=== PATIENT | female | born 1935 | race Caucasian/White ===

== ENCOUNTER 2020-11-05 02:16 | Inpatient (IN) | payer MEDICARE, OTHER ==
[~2020-11-05 02:16] MED LIST: AMLODIPINE BESY10 MG PO; ATORVASTATIN CA40 MG PO; CALCIUM ACETAT667 M1 PO; CLONAZEPAM0.5 M1 PO; ESTRACE42.5 GM UR; ETHYL CHLORIDE TOP; ISOSORBIDE DINI20 MG PO; LASIX80 MG PO; METOLAZONE10 MG PO; VITAMIN D31000 UNIT PO
[2020-11-05 03:39] LABS: BASOPHIL 0.2 % (0-2); EOSINOPHIL 0.4 % (0-7); HCT 26.4 % (37.0-47.0); HGB 8.6 g/dl (12.5-16.0); LYMPHOCYTE 11.1 % (15-48); MCH 31.6 pg (25.0-31.0); MCHC 32.6 g/dL (32.0-36.0); MCV 97.1 fL (78.0-100.0); MONOCYTE 5.3 % (0-12); MPV 11.1 fL (6.0-9.5); NEUTROPHIL 82.5 % (41-80); NRBC 0.3; PLT 212 K/uL (150-400); RBC 2.72 M/uL (4.20-5.40); RDW 16.3 % (11.5-14.0); RETICULOCYTE COUNT 2.9 % (1.0-2.0); WBC 10.2 K/uL (4.0-10.5)
[2020-11-05 04:07] LABS: ALBUMIN 2.9 g/dL (3.4-5.0); BILIRUBIN - TOTAL 0.8 mg/dL (0.2-1.0); BUN/CREAT RATIO (CALC) 10.1 RATIO; CREATININE 4.47 mg/dL (0.51-0.95); GLOBULIN (CALCULATION) 2.8 g/dL; MAGNESIUM 2.5 mg/dL (1.8-2.4); PHOSPHORUS 3.9 mg/dL (2.6-4.7); TOTAL PROTEIN 5.7 g/dL (6.4-8.2)
[2020-11-05 04:10] LABS: LACTIC ACID 4.6 mmol/L (0.4-1.9)
[2020-11-05 04:23] LABS: CORONAVIRUS 2019 SARS-COV-2 NEGATIVE (NEGATIVE); INFLUENZA A NAA NEGATIVE (NEGATIVE)
[2020-11-05] MEDS ORDERED: LOPRESSOR25 MG PO (10:56)
[2020-11-05] MEDS ORDERED: ELIQUIS2.5 MG PO (10:57)
[2020-11-05] MEDS ORDERED: PLAVIX75 MG PO (10:57)
[2020-11-05] MEDS ORDERED: PHOSLO667 MG PO (10:58)
--- NOTE | 2020-11-05 19:51 | NUR ---
2000 V/S B/P R-101/29 MAP-53 CONSULTED KIMBERLYN OLMOS APRN, DIALYSIS CURRENTLY UNDERWAY INITIATED APPROXIMATELY 1899, LAUNDRY CLERK VERBAL TO HOLD LOPRESSOR 25MG PO DUE 2199, WILL CONTINUE TO MONITOR
--- NOTE | 2020-11-05 23:39 | NUR ---
HEART RATE FLUCTUATION BETWEEN 110-140 BLOOD PRESSURES BETWEEN 90/30-90/50, ASBESTOS TEXTILE SUPERVISOR CONSULTED NO ORDERS AT THIS TIME
--- NOTE | 2020-11-06 05:49 | NUR ---
0400 113/35 BP L LOWER ARM, HR 100-130 EKG PERFORMED ORDERED 529 AFIB RVR KIMBERLYN OLMOS CONSULTS AWAITING ORDERS
[2020-11-06 06:12] LABS: BASOPHIL 0.2 % (0-2); EOSINOPHIL 0 % (0-7); HCT 28.5 % (37.0-47.0); HGB 8.9 g/dl (12.5-16.0); LYMPHOCYTE 2.9 % (15-48); MCH 32.4 pg (25.0-31.0); MCHC 31.2 g/dL (32.0-36.0); MCV 103.6 fL (78.0-100.0); MONOCYTE 4.7 % (0-12); PLT 200 K/uL (150-400); RBC 2.75 M/uL (4.20-5.40); RDW 16.8 % (11.5-14.0)
[2020-11-06 06:19] LABS: WBC 24.9 K/uL (4.0-10.5)
--- NOTE | 2020-11-06 06:47 | NUR ---
LABS RESULTED WBC INCREASED FROM 10.2 TO 24.9, SEPSIS PROTOCOL INITIATED BY RN AND CERTIFIED MIDWIFE, LACTIC AND BLOOD CULTURES ORDERED AND 2.25G ZOSYN IV 25ML/HR BID ORDERED,
[2020-11-06 09:03] LABS: BUN/CREAT RATIO (CALC) 9.6 RATIO; CREATININE 3.01 mg/dL (0.51-0.95)
[2020-11-06 09:37] LABS: BASOPHIL 0.1 % (0-2); EOSINOPHIL 0 % (0-7); HCT 23.7 % (37.0-47.0); LYMPHOCYTE 6.9 % (15-48); MCH 31.8 pg (25.0-31.0); MCHC 29.5 g/dL (32.0-36.0); MCV 107.7 fL (78.0-100.0); MONOCYTE 3.3 % (0-12); MPV 11.2 fL (6.0-9.5); NEUTROPHIL 87.2 % (41-80); NRBC 2.9; PLT 144 K/uL (150-400); RDW 17.1 % (11.5-14.0); WBC 20.1 K/uL (4.0-10.5)
--- NOTE | 2020-11-06 09:59 | NUR ---
11/06/20 Ms. Shelley lives at home with her spouse. Her condition is unstable. An assessment will be completed when appropriate.
[2020-11-06 10:06] LABS: ALBUMIN 2.1 g/dL (3.4-5.0); BILIRUBIN - TOTAL 2.1 mg/dL (0.2-1.0); BUN/CREAT RATIO (CALC) 9.4 RATIO; CREATININE 3.19 mg/dL (0.51-0.95); GLOBULIN (CALCULATION) 2.2 g/dL; POTASSIUM 4.7 mmol/L (3.5-5.1); TOTAL PROTEIN 4.3 g/dL (6.4-8.2)
--- NOTE | 2020-11-06 16:50 | NUR ---
0713 CODE CALLED PATIENT WITH NO PULSE, RESPIRATIONS. SEE CODE SHEET. CENTRAL LINE PLACED IN RIGHT FEMORAL. FAMILY NOTIFIED OF PATIENT CONDITION 0830 A LINE PLACED IN LEFT FEMORAL.
--- NOTE | 2020-11-06 17:17 | NUR ---
1415 FAMILY REQUESTED THAT PATIENT BE COMFORT CARE ONLY. ALL IV DRIPS TURNED OFF. 1425 PATIENTS BLOOD PRESSURE DROPPED AND WWENT INTO ASYSTOLE. 1433 DR. ANNE PRONOUNCED PATIENT. NO RESPIRATIONS, NO PULSE, NO BP. 1520 [facility] CALLED RE BODY DONATION PROGRAM. DEBORAHAITON FAXED TO [facility] AT . [facility] CALLED TO [facility]AY THAT [facility].
--- NOTE | 2020-11-06 18:20 | NUR ---
1805 PATIENT PICKED UP BY [facility]
== END 2020-11-06 18:08 | disposition expired ==
LOC: FER 02:16 → FMS 07:53 → FTCU 09:53 → FICU 11-06 07:43
PROVIDERS: Emergency Medicine Emergency Medical Services; ADMIT Internal Medicine
PROC: 5A1D70Z Performance of Urinary Filtration, Intermittent, Less than 6 Hours Per Day (ICD-10-PCS; 2020-11-05)
PROC: 5A12012 Performance of Cardiac Output, Single, Manual (ICD-10-PCS; principal; 2020-11-06)
PROC: 0BH17EZ Insertion of Endotracheal Airway into Trachea, Via Natural or Artificial Opening (ICD-10-PCS; 2020-11-06)
PROC: 5A1935Z Respiratory Ventilation, Less than 24 Consecutive Hours (ICD-10-PCS; 2020-11-06)
PROC: 04HY32Z Insertion of Monitoring Device into Lower Artery, Percutaneous Approach (ICD-10-PCS; 2020-11-06)
PROC: 3E033XZ Introduction of Vasopressor into Peripheral Vein, Percutaneous Approach (ICD-10-PCS; 2020-11-06)
DX: I21.4 Non-ST elevation (NSTEMI) myocardial infarction (principal); N18.6 End stage renal disease; K72.00 Acute and subacute hepatic failure without coma; J96.01 Acute respiratory failure with hypoxia; I12.0 Hypertensive chronic kidney disease with stage 5 chronic kidney disease or end stage renal disease; I48.20 Chronic atrial fibrillation, unspecified; E87.2 Acidosis; Z20.822 Contact with and (suspected) exposure to COVID-19; I48.91 Unspecified atrial fibrillation; I46.2 Cardiac arrest due to underlying cardiac condition; R57.0 Cardiogenic shock; Z66 Do not resuscitate; I95.9 Hypotension, unspecified; Z51.5 Encounter for palliative care; E78.00 Pure hypercholesterolemia, unspecified; E11.22 Type 2 diabetes mellitus with diabetic chronic kidney disease; I25.10 Atherosclerotic heart disease of native coronary artery without angina pectoris; D63.1 Anemia in chronic kidney disease; Z99.2 Dependence on renal dialysis; Z90.710 Acquired absence of both cervix and uterus; Z95.5 Presence of coronary angioplasty implant and graft; Z98.890 Other specified postprocedural states; Z90.49 Acquired absence of other specified parts of digestive tract; Z79.02 Long term (current) use of antithrombotics/antiplatelets; Z79.01 Long term (current) use of anticoagulants; Z79.899 Other long term (current) drug therapy
CPT/HCPCS: 31500; 36415; 36600; 71045; 80048; 80053; 82803; 82962; 83605; 83735; 83880; 84100; 84145; 84484; 85025; 86850; 86900; 86901; 87040; 92950; 93005; 94002; G0378; J0171; J1644; J2250; J2543; J3370; J7030; J7050; J7070; U0002